=== PATIENT | female | born 1980 | race Two or more races ===

== ENCOUNTER 2017-05-06 11:00 | Emergency (ER) | payer OTHER ==
[~2017-05-06] VITALS: Ht 167.6 cm; Wt 86.2 kg
[2017-05-06] MEDS ORDERED: SIMETHICONE 80 MG TAB.CHEW PO PRN (12:00)
[2017-05-06] MEDS ORDERED: DICYCLOMINE HCL 20 MG TABLET PO ONE (12:15)
--- NOTE | 2017-05-06 12:26 | PHYS DOC ---
General Chief Complaint: ABDOMINAL PAIN Stated Complaint: ABDOM PAINS Time Seen by MD: 11:22 Source: patient Exam Limitations: no limitations Problems: History of Present Illness Initial Comments Patient is a 36-year-old female who comes the ED with abnormal sensations in her abdomen. Patient follows at [facility], she states that today she has felt "something moving " and she points to her left lower quadrant. She denies any pain she's had no diarrhea or vomiting and her appetite is intact. She had a normal bowel movement here in the emergency department while waiting. She denies travel or bad food exposure no fever chills sweats or myalgias. She finished her last menses several days ago. Aside from the sensation of something moving she has no complaints and her ED vital signs are stable. Timing/Duration: 24 hours Severity: mild Modifying Factors: improves with other Associated Symptoms: other Allergies: Coded Allergies: No Known Drug Allergies (Unverified , 07/18/15) Past Medical History Medical History: no pertinent history Surgical History: noncontributory Social History Smoker: non-smoker Alcohol: none Drugs: none Review of Systems Constitutional: denies chills, denies fever, denies malaise Respiratory: denies cough, denies shortness of breath Cardiovascular: denies chest pain, denies palpitations Gastrointestinal: see HPI, denies abdominal pain, denies constipation, denies diarrhea, denies nausea, denies vomiting Genitourinary: denies dysuria, denies frequency, denies hematuria Musculoskeletal: denies back pain, denies joint swelling, denies neck pain Psychiatric/Neurological: denies headache, denies numbness, denies paresthesia Physical Exam General Appearance: WD/WN, no apparent distress Ear, Nose, Throat: hearing grossly normal, normal ENT inspection Neck: non-tender, supple Respiratory: normal breath sounds, no respiratory distress Gastrointestinal: normal bowel sounds, non tender, soft, no organomegaly Back: no CVA tenderness, no vertebral tenderness Extremities: non-tender, normal inspection 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 Simethicone by mouth trial while waiting for results here in the emergency room. I advised the patient that it urine studies were normal and she remains nonemergent she can follow-up at [facility] this week for further outpatient workup. urine studies neg. 1301: no improvement with dicyclomine/simethicone. No emergent condition or need for ED workup. Pt comfortable, I discussed the possibility that she might be developing a stomach virus although that would takes some time to all. I discussed follow-up at [facility] tomorrow if symptoms persist. Patient expressed agreement and understanding with the treatment plan. Departure Time of Disposition: 13:02 Disposition: 01 HOME, SELF-CARE Diagnosis: dyspepsia Condition: GOOD Patient Instructions: Clear Liquid Diet, [id number] Additional Instructions: Clear liquids today, advance to bland diet tomorrow as tolerated. [id number] antacids and Pepto-Bismol as needed. Follow-up at [facility] if symptoms persist for outpatient nonemergent workup. Return to ED with new or changing symptoms. KELLIE NIELSEN DO May 06, 2017 12:26
[2017-05-06 12:29] LABS: BACTERIA,URINE 0 /HPF (0-FEW); BILIRUBIN,URINE NEG (NEG); CLARITY,URINE CLEAR; COLOR,URINE YELLOW; GLUCOSE,URINE NEG (NEG); NITRITE,URINE NEG (NEG); RBC,URINE 0 /HPF (0-2); SQUAMOUS EPITHELIAL CELL,UR MOD /LPF; UROBILINOGEN,URINE 0.2 mg/dL (0.2 mg/dL); WBC,URINE 0 /HPF (0-4)
[2017-05-06 13:00] VITALS: BP 115/55
== END 2017-05-06 13:20 | disposition home or self-care (01) ==
LOC: ER 11:00
DX: R10.13 Epigastric pain (principal); R10.32 Left lower quadrant pain
CPT/HCPCS: 81001; 81025; 99283